=== PATIENT | female | born 1980 | race Two or more races ===

== ENCOUNTER 2020-09-29 09:28 | Emergency (ER) | payer OTHER ==
[~2020-09-29] VITALS: Ht 154.9 cm; Wt 86.2 kg
[2020-09-29 09:40] VITALS: BP 147/77
[2020-09-29] MEDS ORDERED: METHOCARBAMOL 500 MG TAB PO ONE (10:45)
== END 2020-09-29 11:08 | disposition home or self-care (01) ==
LOC: ER 09:28
DX: M54.16 Radiculopathy, lumbar region (principal); Z88.6 Allergy status to analgesic agent